=== PATIENT | female | born 1950 | race Caucasian/White ===

== ENCOUNTER → 2018-11-14 | Outpatient (CLI) | payer OTHER, MEDICARE ==
[~2018-11-14] MED LIST: CENTRUM SILVER1 EAC4 PO; COZAAR 50 MG TA50 M2 PO; FISH OIL 1,001000 M2 PO; MOBIC15 MG PO; TENORMIN50 MG PO; TRAMADOL 50 MG50 MG
[2018-11-14 14:12] LABS: CREATININE 1.3 mg/dL (0.6-1.3)
== END ==
LOC: M.CT 13:15
PROVIDERS: Nurse Practitioner Family
DX: N28.1 Cyst of kidney, acquired (principal); N20.0 Calculus of kidney; K57.30 Diverticulosis of large intestine without perforation or abscess without bleeding; N13.4 Hydroureter; N83.292 Other ovarian cyst, left side; N83.291 Other ovarian cyst, right side; K76.0 Fatty (change of) liver, not elsewhere classified; J98.4 Other disorders of lung; K92.1 Melena; M47.816 Spondylosis without myelopathy or radiculopathy, lumbar region; Z90.49 Acquired absence of other specified parts of digestive tract